=== PATIENT | male | born 1955 | race Caucasian/White ===

== ENCOUNTER 2020-04-26 13:13 | Emergency (ER) | payer OTHER ==
[2020-04-26] MEDS ORDERED: BAMLANIVIMAB 700 MG in SODIUM CHLORIDE 180 ML IVPB ONE (13:30)
[2020-04-26 13:39] VITALS: BMI 31.1
[2020-04-26 14:41] LABS: HEMATOCRIT 41.5 % (35.4-49); HEMOGLOBIN 14.6 GM/dL (11.7-16.9); MCH 31.4 pg (25.7-33.7); MCHC 35.1 g/dl (32.0-35.9); MEAN CELL VOLUME 89.4 fl (80-96); MEAN PLT VOLUME 8.6 fl (7.5-11.1); PLATELET COUNT 180 K/MM3 (134-434); RBC 4.63 M/mm3 (4.00-5.60); RDW 12.8 % (11.9-15.9); WHITE BLOOD COUNT 4.9 K/mm3 (4.0-10.0)
[2020-04-26] MEDS ORDERED: BAMLANIVIMAB 700 MG in SODIUM CHLORIDE 250 ML IVPB ONE (14:45)
[2020-04-26 15:09] LABS: POTASSIUM 4.5 mmol/L (3.5-5.1)
[2020-04-26 15:10] LABS: CALCIUM 8.5 mg/dL (8.5-10.1)
[2020-04-26 15:11] LABS: BLOOD UREA NITROGEN 14.4 mg/dL (7-18)
[2020-04-26 15:14] LABS: CREATININE 0.9 mg/dL (0.55-1.3)
[2020-04-26 18:10] VITALS: BP 132/83; PULSE 77; TEMP 98.1
== END 2020-04-26 18:32 | disposition home or self-care (01) ==
LOC: JER 13:13
DX: U07.1 COVID-19 (principal)
CPT/HCPCS: 36415; 71046-TC-FY; 80048; 85027; 99284-25; M0239; Q0239